=== PATIENT | female | born 1960 | race Caucasian/White ===

== ENCOUNTER 2017-08-02 18:10 | Emergency (ER) | payer OTHER ==
[~2017-08-02] VITALS: Ht 157.5 cm; Wt 61.2 kg
[2017-08-02] MEDS ORDERED: UNICOMPLEX M TA1 TA1 PO (18:25)
[2017-08-02] MEDS ORDERED: NORCO 5-325 TA1 EACH PO (18:37)
[2017-08-02 19:27] VITALS: BP 139/82
== END 2017-08-02 19:27 | disposition home or self-care (01) ==
LOC: ER 18:10
DX: S70.01XA Contusion of right hip, initial encounter (principal); W01.0XXA Fall on same level from slipping, tripping and stumbling without subsequent striking against object, initial encounter; Y93.01 Activity, walking, marching and hiking; Y92.89 Other specified places as the place of occurrence of the external cause; Y99.8 Other external cause status

== ENCOUNTER 2018-08-07 12:29 | Emergency (ER) | payer OTHER ==
[~2018-08-07] VITALS: Ht 157.5 cm; Wt 65.8 kg
[~2018-08-07 12:29] MED LIST: NORCO 5-325 TA1 EACH PO; UNICOMPLEX M TA1 TA1 PO
[2018-08-07] MEDS ORDERED: NORCO 5-325 TA1 EACH PO (13:14)
[2018-08-07 14:18] VITALS: BP 149/104
== END 2018-08-07 14:13 | disposition home or self-care (01) ==
LOC: ER 12:29
DX: M79.641 Pain in right hand (principal); M79.644 Pain in right finger(s); F17.210 Nicotine dependence, cigarettes, uncomplicated; Z88.6 Allergy status to analgesic agent; Z87.442 Personal history of urinary calculi; W01.0XXA Fall on same level from slipping, tripping and stumbling without subsequent striking against object, initial encounter; Y92.009 Unspecified place in unspecified non-institutional (private) residence as the place of occurrence of the external cause; Y93.89 Activity, other specified; Y99.8 Other external cause status

== ENCOUNTER 2019-12-23 01:31 | Emergency (ER) | payer OTHER ==
[~2019-12-23] VITALS: Ht 157.5 cm; Wt 65.8 kg
[2019-12-23] MEDS ORDERED: ELIQUIS5 MG PO (01:37)
[2019-12-23] MEDS ORDERED: PEPCID20 MG PO (01:38)
[2019-12-23 02:08] VITALS: BP 170/85
== END 2019-12-23 02:25 | disposition home or self-care (01) ==
LOC: ER 01:31
DX: I82.401 Acute embolism and thrombosis of unspecified deep veins of right lower extremity (principal); R25.2 Cramp and spasm; I10 Essential (primary) hypertension; F17.210 Nicotine dependence, cigarettes, uncomplicated; Z87.442 Personal history of urinary calculi; Z88.6 Allergy status to analgesic agent